=== PATIENT | male | born 1985 | race African-American/Black ===

== ENCOUNTER 2022-11-06 16:05 | Emergency (ER) | payer OTHER ==
[~2022-11-06] VITALS: Ht 172.7 cm; Wt 86.2 kg
--- NOTE | 2022-11-06 16:30 | NUR ---
RIGHT CALF PAIN AFTER PLAYING TENNIS THIS MORNING
[2022-11-06] MEDS ORDERED: KETOROLAC TROMETHAMINE INJ 60 MG/2 ML VIAL IM ONE (18:00)
[2022-11-06] MEDS ORDERED: CYCLOBENZAPRINE 10 MG TABLET PO ONE (18:00)
[2022-11-06] MEDS ORDERED: KETOROLAC TROMETHAMINE INJ 30 MG/ML VIAL ONE (18:15)
[2022-11-06] MEDS ORDERED: CYCLOBENZAPRINE 10 MG TABLET ONE (18:15)
--- NOTE | 2022-11-06 18:28 | NUR ---
Patient discharged to home in stable condition. Written and verbal after care instructions given. Patient verbalizes understanding of instruction.
[2022-11-06 18:30] VITALS: BP 168/79; TEMP 98.1; O2SAT 98
== END 2022-11-06 18:30 | disposition home or self-care (01) ==
LOC: ER 16:09
DX: M79.604 Pain in right leg (principal); Z60.2 Problems related to living alone
CPT/HCPCS: 99283; 96372; J1885